=== PATIENT | female | born 1960 | race Two or more races ===

== ENCOUNTER 2023-01-30 09:55 | Inpatient (IN) | payer OTHER ==
[2023-01-30 10:31] VITALS: BMI 21.9
[2023-01-30] MEDS ORDERED: MAG HYDROX/AL HYDROX/SIMETH 30 ML UNIT-DOSE CUP PO PRN (11:59)
[2023-01-30] MEDS ORDERED: DICYCLOMINE HCL 10 MG CAPSULE PO PRN (11:59)
[2023-01-30] MEDS ORDERED: NALOXONE HCL (KLOXXADO) 8 MG SPRAY NS PRN (11:59)
[2023-01-30] MEDS ORDERED: LOPERAMIDE HCL 2 MG CAPSULE PO PRN (11:59)
[2023-01-30] MEDS ORDERED: BENZOCAINE/MENTHOL (CHLORASEPTIC ) LOZENGE MM PRN (11:59)
[2023-01-30] MEDS ORDERED: ONDANSETRON *ODT* 4 MG TABLET SL PRN (11:59)
[2023-01-30] MEDS ORDERED: NALOXONE HCL 0.4 MG/ML VIAL IM PRN (11:59)
[2023-01-30] MEDS ORDERED: BENZONATATE 200 MG CAPSULE PO PRN (11:59)
[2023-01-30] MEDS ORDERED: IBUPROFEN 600 MG TABLET (FP) PO PRN (11:59)
[2023-01-30] MEDS ORDERED: guaiFENesin 600 MG TABLET.ER (FP) PO PRN (11:59)
[2023-01-30] MEDS ORDERED: BISMUTH SUBSALICYLATE 262 MG/15 ML BTL PO PRN (11:59)
[2023-01-30] MEDS ORDERED: MAGNESIUM HYDROX 2400MG/30ML ORAL SUSPENSION 30 ML CUP PO PRN (11:59)
[2023-01-30] MEDS ORDERED: POLYETHYLENE GLYCOL (HEALTHYLAX) 3350 17 GM PACKET PO PRN (11:59)
[2023-01-30] MEDS ORDERED: ACETAMINOPHEN 325 MG TABLET (FP) PO PRN (11:59)
[2023-01-30] MEDS ORDERED: IBUPROFEN 400 MG TABLET (FP) PO PRN (11:59)
[2023-01-30] MEDS ORDERED: LORazepam 1 MG TABLET PO PRN (12:21)
[2023-01-30] MEDS: FLUoxetine HCL 20 MG CAPSULE PO SCH (15:09)
[2023-01-30] MEDS: LORazepam 2 MG TABLET PO SCH ×2 (17:07→22:06)
[2023-01-30] MEDS ORDERED: QUEtiapine FUMARATE 50 MG TABLET PO SCH (22:00)
[2023-01-30] MEDS: THIAMINE HCL 100 MG TABLET (FP) PO SCH (22:05)
[2023-01-30] MEDS: hydrOXYzine PAMOATE 25 MG CAPSULE (FP) PO PRN (22:05)
[2023-01-30] MEDS: MELATONIN 5 MG TABLETS PO SCH (22:06)
[2023-01-30] MEDS: SODIUM CHLORIDE NASAL SPRAY 44 ML BOTTLE NS SCH ×2 (22:08→22:33)
[2023-01-31] MEDS: LORazepam 2 MG TABLET PO SCH ×4 (05:39→22:54)
[2023-01-31 09:59] LABS: POTASSIUM 4.9 mmol/L (3.5-5.1)
[2023-01-31 10:00] LABS: HEMATOCRIT 33.7 % (32.4-45.2); HEMOGLOBIN 10.1 GM/dL (10.7-15.3); MCH 22.9 pg (25.7-33.7); MCHC 30.1 g/dl (32.0-36.0); MEAN CELL VOLUME 75.9 fl (80-96); MEAN PLT VOLUME 10.9 fl (7.5-11.1); PLATELET COUNT 269 10^3/uL (134-434); RBC 4.43 M/mm3 (3.60-5.2); RDW 17.7 % (11.6-15.6); WHITE BLOOD COUNT 5.4 K/mm3 (4.0-10.0)
[2023-01-31 10:01] LABS: CALCIUM 9.4 mg/dL (8.5-10.1)
[2023-01-31 10:02] LABS: BLOOD UREA NITROGEN 14.9 mg/dL (7-18)
[2023-01-31 10:05] LABS: CREATININE 0.9 mg/dL (0.55-1.3)
[2023-01-31 10:06] LABS: BILIRUBIN,TOTAL 0.2 mg/dL (0.2-1); TOT PROT 7.6 g/dl (6.4-8.2)
[2023-01-31] MEDS: PRENATAL VITAMINS W/ FOLIC ACID TABLET (FP) PO SCH (10:10)
[2023-01-31] MEDS: SODIUM CHLORIDE NASAL SPRAY 44 ML BOTTLE NS SCH ×2 (10:10→22:53)
[2023-01-31] MEDS: FLUoxetine HCL 20 MG CAPSULE PO SCH (10:11)
[2023-01-31] MEDS: MELATONIN 5 MG TABLETS PO SCH (22:54)
[2023-01-31] MEDS: THIAMINE HCL 100 MG TABLET (FP) PO SCH (22:54)
[2023-02-01] MEDS: LORazepam 1 MG TABLET PO SCH ×4 (05:11→22:40)
[2023-02-01] MEDS: SODIUM CHLORIDE NASAL SPRAY 44 ML BOTTLE NS SCH ×2 (10:04→22:40)
[2023-02-01] MEDS: FLUoxetine HCL 20 MG CAPSULE PO SCH (10:05)
[2023-02-01] MEDS: PRENATAL VITAMINS W/ FOLIC ACID TABLET (FP) PO SCH (10:05)
[2023-02-01] MEDS: THIAMINE HCL 100 MG TABLET (FP) PO SCH (22:40)
[2023-02-01] MEDS: MELATONIN 5 MG TABLETS PO SCH (22:40)
[2023-02-02] MEDS ORDERED: LORazepam 0.5 MG TABLET PO PRN
[2023-02-02] MEDS: LORazepam 0.5 MG TABLET PO SCH ×4 (05:40→22:23)
[2023-02-02 09:34] LABS: HEMOGLOBIN 10.6 GM/dL (10.7-15.3); MCH 23.4 pg (25.7-33.7); MCHC 31.2 g/dl (32.0-36.0); MEAN PLT VOLUME 10.1 fl (7.5-11.1); PLATELET COUNT 284 10^3/uL (134-434); RBC 4.54 M/mm3 (3.60-5.2); RDW 17.8 % (11.6-15.6); WHITE BLOOD COUNT 4.6 K/mm3 (4.0-10.0)
[2023-02-02] MEDS: PRENATAL VITAMINS W/ FOLIC ACID TABLET (FP) PO SCH (10:21)
[2023-02-02] MEDS: SODIUM CHLORIDE NASAL SPRAY 44 ML BOTTLE NS SCH ×2 (10:22→23:05)
[2023-02-02] MEDS: FLUoxetine HCL 20 MG CAPSULE PO SCH (10:22)
[2023-02-02] MEDS: hydrOXYzine PAMOATE 25 MG CAPSULE (FP) PO PRN ×2 (12:27→22:23)
[2023-02-02 19:19] LABS: PH,URINE 5.5 (5.0-8.0); URINE APPEARANCE CLEAR; URINE BILIRUBIN NEGATIVE (NEGATIVE); URINE COLOR YELLOW; URINE GLUCOSE (UA) NEGATIVE (NEGATIVE); URINE KETONE NEGATIVE (NEGATIVE); URINE LEUK ESTERASE NEGATIVE (NEGATIVE); URINE NITRITE NEGATIVE (NEGATIVE); URINE PROTEIN NEGATIVE (NEGATIVE); URINE UROBILINOGEN 0.2 mg/dL (0.2-1.0)
[2023-02-02] MEDS: THIAMINE HCL 100 MG TABLET (FP) PO SCH (22:21)
[2023-02-02] MEDS: MELATONIN 5 MG TABLETS PO SCH (22:21)
[2023-02-03] MEDS ORDERED: LORazepam 0.5 MG TABLET PO ONE (05:00)
[2023-02-03 06:40] VITALS: RESP 16
[2023-02-03 09:46] VITALS: BP 121/75; PULSE 63; TEMP 97.7
== END 2023-02-03 10:10 | disposition home or self-care (01) | DRG 774 ==
LOC: YASAS 09:55 → Y6N 12:23
PROVIDERS: ADMIT Allergy & Immunology; ATTEND Allergy & Immunology
PROC: HZ2ZZZZ Detoxification Services for Substance Abuse Treatment (ICD-10-PCS; principal; 2023-01-30)
DX: F10.230 Alcohol dependence with withdrawal, uncomplicated (principal); F14.20 Cocaine dependence, uncomplicated; F17.210 Nicotine dependence, cigarettes, uncomplicated; F31.9 Bipolar disorder, unspecified; F19.282 Other psychoactive substance dependence with psychoactive substance-induced sleep disorder; F19.24 Other psychoactive substance dependence with psychoactive substance-induced mood disorder; F43.10 Post-traumatic stress disorder, unspecified; K70.30 Alcoholic cirrhosis of liver without ascites; R73.9 Hyperglycemia, unspecified; Z62.810 Personal history of physical and sexual abuse in childhood; Z91.410 Personal history of adult physical and sexual abuse; Z86.19 Personal history of other infectious and parasitic diseases
CPT/HCPCS: 36415; 80053; 81003; 83036; 85027; 86593; 86780; 87635; 87811; 93005; 93010